=== PATIENT | male | born 1975 | race Caucasian/White ===

== ENCOUNTER 2018-01-10 08:49 | Emergency (ER) | payer OTHER, SELFPAY ==
[~2018-01-10] VITALS: Ht 172.7 cm; Wt 63.5 kg
[~2018-01-10 08:49] MED LIST: Sudogest30 MG PO
== END 2018-01-10 09:27 | disposition home or self-care (01) ==
LOC: ER 08:49
DX: M70.812 Other soft tissue disorders related to use, overuse and pressure, left shoulder (principal); M70.811 Other soft tissue disorders related to use, overuse and pressure, right shoulder; F17.200 Nicotine dependence, unspecified, uncomplicated
CPT/HCPCS: 99282

== ENCOUNTER → 2020-05-20 | Outpatient (CLI) | payer OTHER, SELFPAY | END | disposition home or self-care (01) | LOC: LAB SHORT 08:45 → LAB EV 08:45 | DX: R06.00 Dyspnea, unspecified (principal); Z20.828 Contact with and (suspected) exposure to other viral communicable diseases | CPT/HCPCS: U0003 ==

== ENCOUNTER 2023-04-22 08:43 | Emergency (ER) | payer OTHER ==
[~2023-04-22] VITALS: Ht 172.7 cm; Wt 65.8 kg
[2023-04-22] MEDS ORDERED: EPIPEN0.3 MG/0.1 IM (08:59)
[2023-04-22] MEDS ORDERED: FAMO20 PO (08:59)
[2023-04-22] MEDS ORDERED: PRED20 PO (08:59)
[2023-04-22 10:00] VITALS: BP 140/91
== END 2023-04-22 10:18 | disposition home or self-care (01) ==
LOC: ER 08:43
DX: T63.441A Toxic effect of venom of bees, accidental (unintentional), initial encounter (principal); F17.210 Nicotine dependence, cigarettes, uncomplicated
CPT/HCPCS: 96374; 96375; 99284-25; J1100